=== PATIENT | female | born 2000 | race Caucasian/White ===

== ENCOUNTER 2019-08-12 07:00 | Day surgery (SDC) | payer OTHER ==
[~2019-08-12] VITALS: Ht 165.1 cm; Wt 73.0 kg
--- NOTE | ~2019-08-12 | OR ---
[facility] [address], [place] [address] Draft DATE OF OPERATION: 08/12/2019 SURGEON: Mark Simon MD PREOPERATIVE DIAGNOSES: Chronic tonsillitis, tonsillolithiasis. POSTOPERATIVE DIAGNOSES: Chronic tonsillitis, tonsillolithiasis. PROCEDURE: Tonsillectomy. ANESTHESIA: General orotracheal, CHANGE OVER Kenneth. PREOP HISTORY: Dee is a 19-year-old young lady with chronic tonsillitis, multiple infections, tonsillolithiasis, chronic sore throats, taken to the operating room for the above-mentioned procedures. OPERATIVE PROCEDURE AND FINDINGS: After informed consent, the patient was taken to the operating room, placed in supine position where general orotracheal anesthesia was induced. The patient and procedure were verified. The patient was repositioned. McIvor mouth gag placed into suspension. Headlight exam of the pharynx showed moderately hypertrophic cryptic tonsillolithic tonsils. Left tonsil was grasped with a tenaculum, retracted medially and removed from its fossa with mucosal sparing incision with Coblation. The field was dry after the procedure. Same procedure on the right tonsil. Tonsils were sent to pathology. The mouth gag was released for several minutes. Reinspection showed no bleeding points. The pharynx was suctioned clear of blood and secretions. Mouth gag was removed. The patient was awakened, extubated, transported to the recovery room in good condition. COMPLICATIONS: None. BLOOD LOSS: Minimal. SPECIMEN: PATIENT NAME: DEE PALMA OPERATIVE REPORT DATE OF : [birth year] REPORT #: [id number] PHYSICIAN: MARK SIMON MD PCP: ENID NORIEGA MD REPORT IS CONFIDENTIAL AND NOT TO BE RELEASED WITHOUT AUTHORIZATION [address] [address] Draft To Pathology. DRAINS: None. Mark Simon MD /PATRICIA /[id number] Copies: ~ PATIENT NAME: DEE PALMA OPERATIVE REPORT DATE OF : [birth year] REPORT #: [id number] PHYSICIAN: MARK SIMON MD PCP: ENID NORIEGA MD REPORT IS CONFIDENTIAL AND NOT TO BE RELEASED WITHOUT AUTHORIZATION
[2019-08-12] MEDS ORDERED: NEXPLANON68 MG SUB-Q (07:21)
--- NOTE | 2019-08-12 09:43 | NUR ---
08/12/19 0943 Jessica Lange 0923 PATIENT ARRIVES TO PACU UNRESPONSIVE TO PAINFUL STIMULI. ORAL AIRWAY IN PLACE. RESP EVEN AND UNLABORED, MASK AT 6 LITERS 0935 PATIENT OPENS EYES WITH VERBAL STIMULI. ORAL AIRWAY REMOVED. MASK OFF. ROOM AIR SATS 100%. 0940 PATIENT AWAKE BUT DROWSY. ANSWERING QUESTIONS APPROPRIATELY. RESP EVEN AND UNLABORED. C/O MILD PAIN, DENIES NAUSEA. TAKING SIPS OF WATER.
--- NOTE | 2019-08-12 10:01 | NUR ---
PT ALERT, ORIENTED AND SUPPORTED BY HER MOTHER JAMAL. PT STRUGGLES ALMOST CONTINUALLY WITH STREP THROAT AND HAS HAMPERED HER ABILITY TO ATTEND CLASSES WHILE AT [employer]. DR TAVARES MADE SURGERY DATE HAPPEN QUICKLY, PT SEEMS INFORMED. REQUESTED PRAYER, WILL FOLLOW NEEDED
[2019-08-12] MEDS ORDERED: HYDROCODONE-ACE15 M3 PO (10:46)
--- NOTE | 2019-08-12 11:00 | NUR ---
1100 DC INSTRUCTIONS GIVEN TO MOTHER AND PT. FATHER PICK RX AND GOING HOME PER MOTHER. PT DENIES THE NEED FOR PAIN MEDICATION AND REPORTS PAIN IS MINIMAL AND TOLERBLE. ALL QUESTIONS ANSWERED AND PAPERWORK GIVEN. PT DRINKING WATER AND ATE PUDDING AND DENIES NAUSEA. DC VIA WC WITH MOTHER.
== END 2019-08-12 11:00 | disposition home or self-care (01) ==
LOC: OPS 07:00 → DS 07:00 → OPS 08:00 → DS 08:00 → OPS 11:00
PROVIDERS: Otolaryngology
PROC: 0CTPXZZ Resection of Tonsils, External Approach (ICD-10-PCS; principal; 2019-08-12 08:00)
DX: J35.01 Chronic tonsillitis (principal); J35.8 Other chronic diseases of tonsils and adenoids; Z87.442 Personal history of urinary calculi
CPT/HCPCS: 00170; J1100; J1885; J2250; J2405; J2704; J3010; J7121